=== PATIENT | female | born 1935 | race Native Hawaiian/Other Pacific Islander ===

== ENCOUNTER 2016-06-24 09:08 | Outpatient (CLI) | payer OTHER | END 2016-06-24 19:51 | disposition home or self-care (01) | LOC: MAMMO 09:08 | DX: Z12.31 Encounter for screening mammogram for malignant neoplasm of breast (principal) | CPT/HCPCS: G0202-TC ==

== ENCOUNTER 2017-03-17 11:42 | Emergency (ER) | payer OTHER ==
[~2017-03-17] VITALS: Ht 162.6 cm; Wt 108.4 kg
[2017-03-17 12:01] VITALS: TEMP 97.8
[2017-03-17 13:38] LABS: PLATELET COUNT 157 K/uL (152-353)
[2017-03-17 13:47] LABS: POTASSIUM 4.1 mmol/L (3.6-5.2)
[2017-03-17 14:25] VITALS: BP 145/75
== END 2017-03-17 14:55 | disposition home or self-care (01) ==
LOC: ED 11:42
PROVIDERS: Emergency Medicine
DX: I10 Essential (primary) hypertension (principal); R00.1 Bradycardia, unspecified
CPT/HCPCS: 36415; 80053; 82550; 82553; 83880; 84484; 85027; 93005; 96374; 99284; J0360

== ENCOUNTER 2017-06-26 10:16 | Outpatient (CLI) | payer OTHER | END 2017-06-26 19:20 | disposition home or self-care (01) | LOC: MAMMO 10:16 | DX: Z12.31 Encounter for screening mammogram for malignant neoplasm of breast (principal); Z85.3 Personal history of malignant neoplasm of breast ==

== ENCOUNTER 2017-07-17 10:30 | Outpatient (CLI) | payer OTHER ==
[2017-07-17 11:13] LABS: PLATELET COUNT 154 K/uL (152-353)
== END 2017-07-17 23:57 | disposition home or self-care (01) ==
LOC: LABW 10:30
PROVIDERS: Internal Medicine Hematology & Oncology
DX: C50.111 Malignant neoplasm of central portion of right female breast (principal); E55.9 Vitamin D deficiency, unspecified
CPT/HCPCS: 36415; 80053; 82306; 85027

== ENCOUNTER 2017-08-21 10:44 | Outpatient (CLI) | payer OTHER | END 2017-08-21 19:16 | disposition home or self-care (01) | LOC: RAD 10:44 | DX: M81.0 Age-related osteoporosis without current pathological fracture (principal) ==

== ENCOUNTER 2018-07-06 09:03 | Outpatient (CLI) | payer OTHER | END 2018-07-06 19:40 | disposition home or self-care (01) | LOC: MAMMO 09:03 | DX: Z12.31 Encounter for screening mammogram for malignant neoplasm of breast (principal) ==

== ENCOUNTER 2018-07-08 13:45 | Outpatient (CLI) | payer OTHER | END 2018-07-08 23:59 | disposition home or self-care (01) | LOC: MAMMO 13:45 | DX: R92.8 Other abnormal and inconclusive findings on diagnostic imaging of breast (principal) ==